=== PATIENT | male | born 1970 | race Caucasian/White ===

== ENCOUNTER 2025-02-19 08:10 | Day surgery (SDC) | payer MEDICAID, SELFPAY ==
--- NOTE | 2025-02-16 07:44 | EKG_ITS ---
[facility] Test Date: 2025-02-16 Pat Name: LUIS MERRITT Department: Room: - Gender: Male Workday Manager: TALISHA : 1970 Requested By: Len Mcfadden Order Number: [id number] Reading MD: Len Mcfadden Measurements Intervals [place] Rate: 70 P: -17 OR: 148 QRS: 59 QRSD: 94 T: 41 QT: 364 QTc: 395 Interpretive Statements SINUS RHYTHM Compared to ECG 11/22/2023 20:59:48 Sinus tachycardia no longer present /store/[id number].pdf
[2025-02-16 11:44] LABS: Alanine Aminotransferase 63 U/L (10-49); Albumin, Serum 4.2 gm/dL (3.5-5.0); Albumin/Globulin Ratio 1.4 (1.2-2.2); Alkaline Phosphatase 60 U/L (46-116); Anion Gap 6 (7-16); Aspartate Amino Transferase 47 U/L (0-34); BUN/Creatinine Ratio 13 Ratio (12-20); Bilirubin,Total 0.5 mg/dL (0.3-1.2); Blood Urea Nitrogen 16 mg/dL (9-23); Calcium 9.6 mg/dL (8.3-10.6); Calcium (Corrected) 9.6 mg/dL (8.5-10.1); Carbon Dioxide 28.3 mMol/L (20.0-31.0); Chloride 103 mMol/L (98-107); Creatinine (Component) 1.2 mg/dL (0.6-1.3); Globulin 3.0 gm/dL (2.3-3.5); Glucose 244 mg/dL (74-106); Osmolality,Calculated 283 (275-295); Potassium 4.8 mMol/L (3.4-5.1); Sodium 137 mMol/L (136-145); Total Protein 7.2 gm/dL (5.7-8.2); eGFR > 60 See Note
[2025-02-19] VITALS (7 sets, daily range): BP systolic 99–128; BP diastolic 57–85; PULSE 71–82; RESP 14–17; TEMP 36.3–36.6; O2SAT 97–100; BMI 28.2
[2025-02-19] MEDS: RINGERS LACTATED 1000 ML 1,000 ML 60 ML IV (09:15)
--- NOTE | 2025-02-19 10:20 | SUR.PHASEII ---
1020 patient arrived to recovery resting comfortably in [facility], drowsy and talking with staff, breathing unlabored, vital signs stable, denies pain and nausea, report received from Domenica CALERO and Dr. Bo
--- NOTE | 2025-02-19 10:59 | SUR.PHASEII ---
1059 Patient meets discharge criteria from recovery, awake and alert, breathing unlabored, vital signs stable, denies pain and nausea, patient ate a jello and drinking 7up; tolerated well, voided in the restroom, patient able to dress himself into his clothing, discharge instructions given to patient and patients friend, friend signed discharge instructions. Patient given all his belongings prior to discharge, transported via wheelchair and left in a private vehicle.
== END 2025-02-19 10:59 | disposition home or self-care (01) ==
LOC: S2EX 10:32
PROVIDERS: Anesthesiology; Referring Provider Specialist; Visit Provider Specialist
PROC: 0DJD8ZZ Inspection of Lower Intestinal Tract, Via Natural or Artificial Opening Endoscopic (ICD-10-PCS; CPT 45378; principal; 2025-02-19 08:15)
DX: Z12.11 Encounter for screening for malignant neoplasm of colon (principal); D12.8 Benign neoplasm of rectum; K64.9 Unspecified hemorrhoids; Q43.8 Other specified congenital malformations of intestine; Z01.810 Encounter for preprocedural cardiovascular examination
CPT/HCPCS: 45380; 36415; 80053; 93005; A4649; J7120